=== PATIENT | male | born 1990 | race Two or more races ===

== ENCOUNTER 2025-01-14 12:09 | Emergency (ER) | payer BC ==
[~2025-01-14] VITALS: Ht 170.2 cm; Wt 77.1 kg
[2025-01-14] MEDS ORDERED: FAMOtidine 10 MG/ML (4ML VIAL) IV STA (12:53)
[2025-01-14] MEDS ORDERED: ONDANSETRON HCL 2 MG/ML VIAL IV ONE (13:00)
[2025-01-14] MEDS ORDERED: DIATRIZOATE MEGLUMINE, SODIUM 30 ML BOTTLE ONE (13:18)
[2025-01-14 13:42] LABS: HEMATOCRIT 41.6 % (39.0-48.0); MEAN CELL VOLUME 88.5 fL (80.0-100.00); MEAN CORPUSCULAR HEMOGLOBIN 29.8 pg (27.00-32.0); MEAN CORPUSCULAR HGB CONC 33.6 g/dl (32.0-36.0); PLATELET COUNT 200 K/uL (150-450); RED CELL DISTRIBUTION WIDTH 12.5 % (11.5-14.5)
[2025-01-14 14:19] LABS: ALBUMIN 4.7 gm/dL (3.4-5.0); BILIRUBIN TOTAL 0.85 mg/dL (0.3-1.2); BILIRUBIN,CONJUGATED 0.25 mg/dL (0.0-0.2); BILIRUBIN,UNCONJUGATED 0.6 mg/dL (0.0-0.6); CALCIUM 9.3 mg/dL (8.5-10.1); CREATININE SERUM 1.05 mg/dL (0.70-1.30); GFR 80.85; POTASSIUM 4.11 mEq/L (3.5-5.1); TOTAL PROTEIN 7.9 gm/dL (6.4-8.2)
[2025-01-14 14:39] LABS: PH,URINE 6.5 (5.0-8.0); URINE APPEARANCE Clear; URINE BILIRRUBIN Negative (NEGATIVE); URINE BLOOD Large; URINE COLOR Yellow; URINE GLUCOSE Negative (NEGATIVE); URINE LEUKOCYTE Negative; URINE NITRATE Negative; URINE PROTEIN Trace (NEGATIVE)
[2025-01-14 14:42] LABS: URINE RBC 388.4 uL (0.0-20.8); URINE WBC 2.5 uL (0.0-23.2)
[2025-01-14 14:43] LABS: URINE BACTERIA 3.6 uL (0.0-1933); URINE EPITHELIAL CELLS 0.1 uL (0.0-38.8); URINE KETONE 80 (NEGATIVE)
== END 2025-01-14 18:20 | disposition home or self-care (01) ==
LOC: ER 12:10
PROVIDERS: General Practice
DX: R10.32 Left lower quadrant pain (principal); N13.39 Other hydronephrosis; N20.1 Calculus of ureter; K57.30 Diverticulosis of large intestine without perforation or abscess without bleeding